=== PATIENT | female | born 1990 | race Caucasian/White ===

== ENCOUNTER 2016-08-25 23:03 | Emergency (ER) | payer SELFPAY ==
[2016-08-26] MEDS ORDERED: NEB-ALBUTEROL 2.5 MG/3 ML INH ONE (00:03)
[2016-08-26] MEDS ORDERED: TRAMADOL 50 MG TAB ONE (00:43)
== END 2016-08-26 00:47 | disposition home or self-care (01) ==
LOC: ER 23:03
CPT/HCPCS: 71020; 81001; 81025; 87077; 87088; 87186; 94640

== ENCOUNTER 2016-08-26 13:40 | Observation (INO) | payer MEDICAID ==
[2016-08-26] VITALS (29 sets, daily range): BP systolic 94–104; RESP 9–26; TEMP 97.4–98.4; Ht 167.6 cm; Wt 66.2 kg
[~2016-08-26] VITALS: Ht 167.6 cm; Wt 66.2 kg
[~2016-08-26 13:40] MED LIST: BUPIVACA/EPI 0.25% PF 30ML NERVEBLOCK ONE; DEXAMETHASONE 4 MG/ML VIAL ONE; FENTANYL 100 MCG/2 ML AMP ONE; LIDOCAINE 2% SYR 5 ML IV ONE; ONDANSETRON 4 MG VIAL ONE; PROPOFOL 20 ML PER ML IV ONE; ROCURONIUM 50 MG VIAL IV ONE
[2016-08-26] MEDS ORDERED: ONDANSETRON 4 MG VIAL ONE (14:44)
[2016-08-26] MEDS ORDERED: KETOROLAC 30 MG/ML VIAL ONE (14:45)
[2016-08-26] MEDS ORDERED: SODIUM CHLORIDE 0.9% 1,000 ML ONE (14:45)
[2016-08-26] MEDS ORDERED: INDOCYANINE GREEN 25 MG VIAL IV ONE (16:30)
[2016-08-26] MEDS ORDERED: LACT RINGERS 1,000 ML IV SCH ×2 (16:30→17:15)
[2016-08-26] MEDS ORDERED: LACT RINGERS 1,000 ML IV ONE (16:41)
[2016-08-26] MEDS ORDERED: MIDAZOLAM 2 MG/2 ML INJ IV ONE (17:15)
[2016-08-26] MEDS ORDERED: LIDOCAINE 1% BUFFERED 1 ML SYR INTRADERM PRN (17:15)
[2016-08-26] MEDS ORDERED: GLYCOPYRROLATE 0.2 MG/ML VIAL IV ONE (17:15)
[2016-08-26] MEDS ORDERED: DILAUDID 1 MG/ML AMP IV PRN (18:10)
[2016-08-26] MEDS ORDERED: MEPERIDINE 25 MG/ML IV PRN (18:10)
[2016-08-26] MEDS ORDERED: ONDANSETRON 4 MG VIAL IV PRN ×2 (18:10→18:15)
[2016-08-26] MEDS ORDERED: OXYCODONE 5 MG TAB PO PRN (18:10)
[2016-08-26] MEDS ORDERED: MORPHINE 2 MG/ML SYR IV PRN ×2 (18:10→18:15)
[2016-08-26] MEDS ORDERED: MORPHINE 4 MG/ML SYR IV PRN (18:10)
[2016-08-26] MEDS ORDERED: D5-1/2-NS W/KCL 20MEQ/L 1,000 ML IV SCH (18:15)
[2016-08-26] MEDS ORDERED: SALINE FLUSH 10 ML FLUSH PRN (18:15)
[2016-08-26] MEDS: OXYCODONE 5 MG TAB PO PRN (23:32)
[2016-08-27] MEDS: SALINE FLUSH 10 ML FLUSH SCH ×2 (02:33→08:36)
[2016-08-27 03:31] VITALS: BP_SYST 81; RESP 16; TEMP 98
[2016-08-27 03:40] VITALS: BP_SYST 90
[2016-08-27] MEDS ORDERED: SODIUM CHLORIDE 0.9% FLUSH BAG 500 ML IV SCH (06:00)
[2016-08-27] MEDS: OXYCODONE 5 MG TAB PO PRN ×2 (06:11→11:13)
[2016-08-27 07:26] VITALS: BP_SYST 81; RESP 16; TEMP 98.2
[2016-08-27 11:00] VITALS: BP_SYST 99; RESP 16; TEMP 98.2
[2016-08-27 14:49] VITALS: BP_SYST 99; RESP 16; TEMP 98.2
[2016-08-27 14:55] VITALS: BP_SYST 98; RESP 16; TEMP 98.4
== END 2016-08-27 12:44 | disposition home or self-care (01) ==
LOC: ENRESERVTM → ENRESERVDT → CANRESERV → ER 13:40 → SDS 18:14 → ENPENDDIS 18:14 → 3S 21:36
PROVIDERS: ADMIT Surgery; ATTEND Surgery
CPT/HCPCS: 36415; 76705; 80053; 81001; 83690; 84703; 85025; 87077; 87088; 87186; 88304; 96361; 96374; 96375